=== PATIENT | male | born 1990 | race Hispanic/Latino ===

== ENCOUNTER 2025-06-21 20:58 | Emergency (ER) | payer OTHER, SELFPAY ==
[2025-06-21 20:59] VITALS: BP 111/73; PULSE 82; RESP 18; TEMP 36.4; O2SAT 98; BMI 20.3
--- NOTE | 2025-06-21 22:03 | EDS_ITS ---
HPI History of Present Illness Chief Complaint: Eye Problem Informant: patient Narrative Narrative: Patient is a 34-year-old male with no reported significant past medical history. He states he was at work yesterday when he believes he had a piece of metal in his right eye. He states he does not wear contact lenses. He reports that he did not think much of this but as time passed he developed increased redness swelling and pain from the eye. Secondary to his who presents for evaluation. PFSH PFSH Medical History no medical history no medical history Home Medications ?Medication ?Instructions ?Recorded ?Last Taken ?Type ciprofloxacin HCl 0.3 % eye drops 2 drp RIGHT EYE 4X/D AY 7 days #10 06/21/25 Unknown Rx mL oxycodone-acetaminophen 5 mg-325 1 tab PO Q6H PRN pain 3 days #12 06/21/25 Unknown Rx mg tablet (Percocet) tabs Allergy/AdvReac Type Severity Reaction Status Date / Time No Known Allergies Allergy Verified 06/21/25 20:59 Family History no significant family his Surgical History no surgical history Social History Smoking Status: Current every day smoker tobacco type: cigarettes ROS ROS ED Constitutional Constitutional ED: Denies chills or fever(s) Eyes Eyes: Reports blurry vision and other Details: Positive right eye pain and redness and increased tearing. There is photophobia present as well ENT ENT ED: Denies sore throat Cardiovascular Cardiovascular: Denies chest pain Respiratory/Chest Respiratory/Chest: Denies cough or dyspnea Gastrointestinal Gastrointestinal: Denies abdominal pain, diarrhea, nausea or vomiting Musculoskeletal Musculoskeletal: Denies neck pain Integumentary Denies rash Neurologic Neurologic: Denies headache(s) Hematologic/Lymphatic Hematologic/Lymphatic: Denies easy bleeding or easy bruising EXAM Physical Exam Const Vital Signs: 06/21/25 20:59 Temperature 97.5 F L Temperature Source Temporal Pulse Rate 82 Respiratory Rate 18 Blood Pressure 111/73 Blood Pressure Mean 85 Pulse Ox 98 Oxygen Delivery Method Room Air Positive well nourished and well developed General Appearance ED: well developed HEENT HEENT Narrative: Normocephalic atraumatic Eyes PERRL and EOMs intact bilaterally Eyes Narrative: There is increased scleral injection to the right eye with increased tearing. Over top of the iris near the 6 to 7 o'clock position is a punctate foreign body consistent with patient's history. The upper lid was everted there is no for eign body within the upper region of the eye. Negative Sidel sign No hyphema Neck supple Resp normal respiratory effort, no retractions, no use of accessory muscles and clear to auscultation bilaterally Cardio regular rate and regular rhythm Extremity normal to inspection Neuro oriented x3, CN's II-XII intact bilaterally, moves all extremities and no sensory deficits noted Sensorium / Orientation: alert Motor Exam: strength 5/5 throughout Psych mental status grossly normal Skin no rashes or lesions noted and no wounds MDM MDM MDM Narrative Medical decision making narrative: Patient arrived to the ER reporting potential retained foreign body in the right eye. His physical exam does show retained foreign body over top of the iris near the 6 to 7 o'clock position. There is no associated globe rupture with this. The patient does not have a hyphema. There is no subconjunctival hemorrhage. Therefore at this time there is no need for emergent ophthalmology consultation. The patient did achieve complete pain relief with tetracaine. A katya was then used to remove the foreign object. After doing so there did appear to still be a small rust ring present. At this time the patient will be started on ciprofloxacin ophthalmic drops to prevent secondary infection. He will be instructed to follow-up with ophthalmology for repeat evaluation regarding his corneal abrasion with foreign object and rust ring. However at this time as the foreign object appears to have been removed. There is no sign of globe rupture. There is no need for emergent evaluation by ophthalmology and he can be discharged home with symptomatic medications. History & Record Review Discussion w/independent historian: Patient Discharge Plan Triage Chief Complaint: Eye Problem ED Provider: Brad Sweeney Dx/Rx/DC Orders Clinical Impression: Acute foreign body of right cornea, Corneal abrasion, right Instructions: ED Corneal Abrasion, Foreign Body, Cornea Prescriptions: New oxycodone-acetaminophen [Percocet] 5-325 mg tablet 1 tab PO Q6H PRN (Reason: pain) 3 Days Qty: 12 0RF ciprofloxacin HCl 0.3 % drops 2 drp RIGHT EYE 4X/DAY 7 Days Qty: 10 0RF Rx Instructions: administer while awake Primary Care Provider: Care Physician,No Primary Referrals: Ruslan Wade MD [Med Staff - Active Staff, Opthamology] Referral Note: Corneal foreign body and corneal abrasion Care Physician,No Primary [Primary Care Provider, Medical] Activity Restrictions/Additional Instructions: Please use the antibiotic eyedrops as directed to prevent a secondary infection from the corneal abrasion. Follow-up with ophthalmology to ensure there is no further retained foreign object. Return to the ER should you have any further concerns or worsening of symptoms. It would typically take 5 days for symptoms to resolve Print Language: Hebrew Disposition Disposition: Home, Self Care Discharge Date/Time: 06/21/25 23:31
[2025-06-21] MEDS: Tetracaine 0.5% Ophthalmic Bottle 1 DRP RIGHT EYE (22:11)
[2025-06-21 23:00] VITALS: BP 141/94; PULSE 71; PULSE 72; RESP 18; TEMP 36.6; O2SAT 98; O2SAT 99
--- NOTE | 2025-06-21 23:25 | ED.RN ---
This RN educated the patient on the process of Workman's compensation and the patient filled out the form. However, the patient ultimately ended up refusing the paperwork and the patient is refusing to wait for [facility]. The patient was educated on the benefits of Workman's comp. The patient verbalized understanding of what he was refusing. The patient ambulated out of the department. [facility] notified.
== END 2025-06-21 23:31 | disposition home or self-care (01) ==
PROVIDERS: Emergency Provider Emergency Medicine; Visit Provider Emergency Medicine
DX: T15.01XA Foreign body in cornea, right eye, initial encounter (principal); F17.210 Nicotine dependence, cigarettes, uncomplicated; X58.XXXA Exposure to other specified factors, initial encounter
CPT/HCPCS: 99283

== ENCOUNTER 2025-07-11 19:10 | Emergency (ER) | payer SELFPAY ==
[2025-07-11 19:10] VITALS: BP 122/77; PULSE 88; RESP 15; TEMP 36.3; O2SAT 97; BMI 20.5
--- OUTSIDE RECORDS SUMMARY | 2025-07-11 20:17 | XMS RPT_ITS | CCD ---
Author Organization [facility] Care Team Providers Care Ic Designer [employer] Name Role Phone Brad Sweeney Attending Unavailable Care Physician, No Primary Primary Care Unava ilable Dr. Brad Sweeney DO Attending Physician Dr. Brad Sweeney DO Emergency Department Physic miki Care Physician, No Primary Primary Care Physicia n Unavailable Medications Current Medications Medication Drug Class(es) Dates Sig (Normalized) Sig (Original) acetaminophen 325 mg / oxyCODONE hydrochloride 5 mg oral tablet (1 source) Opioid Agonist Start: 06-21-2025 take 1 tablet by mouth every six hours as needed for pain ciprofloxacin 3 mg/ml ophthalmic solution (1 source) Quinolone Antimicrobial Start: 06-21-2025 Problems Problem Classification Problem Date Documented Da te Episodic/Chronic Other injuries and conditions due to external causes (1 source) Foreign body in cornea, right eye, initial encounter; Translations: [Foreign body in cornea, right eye, initial encounter] Onset: 06-25-2025 Episodic Other injuries and conditions due to external causes (1 source) Foreign body in right cornea; Translations: [Foreign body in cornea, right eye, initial encounter] 06-21-2025 Episodic Superficial injury; contusion (1 source) Abrasion of cornea of right eye; Translations: [Injury of conjunctiva and corneal abrasion without foreign body, right eye, initial encounter] 06-21-2025 Episodic Unclassified (1 source) Corneal foreign body and corneal abrasion Results Test Name Value Interpretation Reference Range Facil ity Emergency Department Summary on 06-21-2025 Emergency Department Summary [facility] Medical Records Department [address] [place] [address] Emergency Department Summary 06/21/25 MR#: [id number] Acct: [id number] Name: FILOMENA BARTON Rep #: [id number] : 1990 34 From: Brad Sweeney DO PCP: Care Physician,No Primary Status:DEP ER Location: ED HPI History of Present Illness Chief Complaint: Eye Problem Informant: patient Narrative Narrative: Patient is a 34-year-old male with no reported significant past medical history. He states he was at work yesterday when he believes he had a piece of metal in his right eye. He states he does not wear contact lenses. He reports that he did not think much of this but as time passed he developed increased redness swelling and pain from the eye. Secondary to his who presents for evaluation. PFSH PFSH Medical History no medical history no medical history Home Medications ???Medication ???Instructions ???Recorded ???Last Taken ???Type ciprofloxacin HCl 0.3 % eye drops 2 drp RIGHT EYE 4X/DAY 7 days #10 06/21/25 Unknown Rx mL oxycodone-acetaminop hen 5 mg-325 1 tab PO Q6H PRN pain 3 days #12 0 06/21/25 Unknown Rx mg tablet (Percocet) tabs Allergy/AdvReac Type Severity Reaction Status Date / Time No Known Allergies Allergy Verified 06/21/25 20:59 Family History no significant family his Surgical History no surgical history Social History Smoking Status: Current every day smoker tobacco type: cigarettes ROS ROS ED Constitutional Constitutional ED: Denies chills or fever(s) Eyes Eyes: Reports blurry vision and other Details: Positive right eye pain and redness and increased tearing. There is photophobia present as well ENT ENT ED: Denies sore throat Cardiovascular Cardiovascular: Denies chest pain Respiratory/Chest Respiratory/Chest: Denies cough or dyspnea Gastrointestinal Gastrointestinal: Denies abdominal pain, diarrhea, nausea or vomiting Musculoskeletal Musculoskeletal: Denies neck pain Integumentary Denies rash Neurologic Neurologic: Denies headache(s) Hematologic/Lymphati c Hematologic/Lymphati c: Denies easy bleeding or easy bruising EXAM Physical Exam Const Vital Signs: 06/21/25 20:59 Temperature 97.5 F L Temperature Source Temporal Pulse Rate 82 Respiratory Rate 18 Blood Pressure 111/73 Blood Pressure Mean 85 Pulse Ox 98 Oxygen Delivery Method Room Air Positive well nourished and well developed General Appearance ED: well developed HEENT HEENT Narrative: Normocephalic atraumatic Eyes PERRL and EOMs intact bilaterally Eyes Narrative: There is increased scleral injection to the right eye with increased tearing. Over top of the iris near the 6 to 7 o'clock position is a punctate foreign body consistent with patient's history. The upper lid was everted there is no foreign body within the upper region of the eye. Negative Sidel sign No hyphema Neck supple Resp normal respiratory effort, no retractions, no use of accessory muscles and clear to auscultation bilaterally Cardio regular rate and regular rhythm Extremity normal to inspection Neuro oriented x3, CN's II-XII intact bilaterally, moves all extremities and no sensory deficits noted Sensorium / Orientation: alert Motor Exam: strength 5/5 throughout Psych mental status grossly normal Skin no rashes or lesions noted and no wounds MDM MDM MDM Narrative Medical decision making narrative: Patient arrived to the ER reporting potential retained foreign body in the right eye. His physical exam does show retained foreign body over top of the iris near the 6 to 7 o'clock position. There is no associated globe rupture with this. The patient does not have a hyphema. There is no subconjunctival hemorrhage. Therefore at this time there is no need for emergent ophthalmology consultation. The patient did achieve complete pain relief with tetracaine. A katya was then used to remove the foreign object. After doing so there did appear to still be a small rust ring present. At this time the patient will be started on ciprofloxacin ophthalmic drops to prevent secondary infection. He will be instructed to follow-up with ophthalmology for repeat evaluation regarding his corneal abrasion with foreign object and rust ring. However at this time as the foreign object appears to have been removed. There is no sign of globe rupture. There is no need for emergent evaluation by ophthalmology and he can be discharged home with symptomatic medications. History Record Review Discussion w/independent historian: Patient Discharge Plan Triage Chief Complaint: Eye Problem ED Provider: Brad Sweeney Dx/Rx/DC Orders Clinical Impression: Acute foreign body of right cornea, Corneal abrasion, right Instructions: ED (more content not included)... Normal [facility] Vital Signs Date Time Vital Sign Value Performing Clinician Elizabet benedict 06-21-2025 23:00-0400 Body temperature 98 [degF] Dr. Brad Sweeney DO Work Phone: [facility] 06-21-2025 23:00-0400 Diastolic blood pressure 94 mm[Hg] Dr. Brad Sweeney DO Work Phone: [facility] 06-21-2025 23:00-0400 Heart rate 71 /min Dr. Brad Sweeney DO Work Phone: [facility] 06-21-2025 23:00-0400 Respiratory rate 18 /min Dr. Brad Sweeney DO Work Phone: [facility] 06-21-2025 23:00-0400 SaO2% (BldA) [Mass fraction] 98 % Dr. Brad Sweeney DO Work Phone: [facility] 06-21-2025 23:00-0400 Systolic blood pressure 141 mm[Hg] Dr. Brad Sweeney DO Work Phone: [facility] 06-21-2025 20:59-0400 Body height 180.[address] Brad Sweeney DO Work Phone: [facility] 06-21-2025 20:59-0400 Body mass index (BMI) [Ratio] 20.3 kg/m2 Dr. Brad Sweeney DO Work Phone: [facility] 06-21-2025 20:59-0400 Body weight 66.[address] Brad Sweeney DO Work Phone: [facility] Encounters Encounter Date Encounter Type Care Provider Facility Start: 06-21-2025 End: 06-21-2025 Emergency department patient visit Brad Sweeney Facility:[facility] Plan of Treatment Date Care Activity Detail Author Start: 06-21-2025 [facility] Patient Education ED Corneal Abr asion Foreign Body, Cornea [facility] Work Phone: Payers Date Payer Category Payer Self-pay 2025 Unknown [id number] Unknown [id number] Social History Date Type Detail Facility Start: 06-21-2025 Tobacco smoking stat us [facility] Smokes tobacco daily (finding) [facility] Sex Male [facility] Start: 1990 Sex Assigned At Male [facility] Discharge summary 06-21-2025 Note Date & Type Note Facility 06-21-2025 Discharge summary [facility] Discharge summary 06-21-2025 Note Date & Type Note Facility 06-21-2025 Discharge summary Note Date/Time June 21, 2025 11:31pm [facility] Medical Records Department [address] [place] [address] Emergency Department Summary 06/21/25 MR#: [id number] Acct: [id number] Name: FILOMENA BARTON Rep #:[id number] : 1990 34 From: Brad Sweeney DO PCP: Care Physician,No Primary Status :DEP ER Location: ED HPI History of Present Illness Chief Complaint: Eye Problem Informant: patient Narrative Narrative: Patient is a 34-year-old male with no reported significant past medical history. He states he was at work yesterday when he believes he had a piece of metal in his right eye. He states he does not wear contact lenses. He reports that he did not think much of this but as time passed he developed increased redness swelling and pain from the eye. Secondary to his who presents for evaluation. [facility] Medical History no medical history no medical history Home Medications ?Medication ?Instructions ?Recorded ?Last Taken ?Type ciprofloxacin HCl 0.3 % eye drops 2 drp RIGHT EYE 4X/D AY 7 days #10 06/21/25 Unknown Rx mL oxycodone-acetaminophen 5 mg-325 1 tab PO Q6H PRN pain 3 days #12 06/21/25 Unknown Rx mg tablet (Percocet) tabs Allergy/AdvReac Type Severity Reaction Status Date / Time No Known Allergies Allergy Verified 06/21/25 20:59 Family History no significant family his Surgical History no surgical history Social History Smoking Status: Current every day smoker tobacco type: cigarettes ROS ROS ED Constitutional Constitutional ED: Denies chills or fever(s) Eyes Eyes: Reports blurry vision and other Details: Positive right eye pain and redness and increased tearing. There is photophobia present as well ENT ENT ED: Denies sore throat Cardiovascular Cardiovascular: Denies chest pain Respiratory/Chest Respiratory/Chest: Denies cough or dyspnea Gastrointestinal Gastrointestinal: Denies abdominal pain, diarrhea, nausea or vomiting Musculoskeletal Musculoskeletal: Denies neck pain Integumentary Denies rash Neurologic Neurologic: Denies headache(s) Hematologic/Lymphatic Hematologic/Lymphatic: Denies easy bleeding or easy bruising EXAM Physical Exam Const Vital Signs: 06/21/25 20:59 Temperature 97.5 F L Temperature Source Temporal Pulse Rate 82 Respiratory Rate 18 Blood Pressure 111/73 Blood Pressure Mean 85 Pulse Ox 98 Oxygen Delivery Method Room Air Positive well nourished and well developed General Appearance ED: well developed HEENT HEENT Narrative: Normocephalic atraumatic Eyes PERRL and EOMs intact bilaterally Eyes Narrative: There is increased scleral injection to the right eye with increased tearing. Over top of the iris near the 6 to 7 o'clock position is a punctate foreign bodyconsistent with patient's history. The upper lid was everted there is no foreign body within the upper region of the eye. Negative Sidel sign No hyphema Neck supple Resp normal respiratory effort, no retractions, no use of accessory muscles and clearto auscultation bilaterally Cardio regular rate and regular rhythm Extremity normal to inspection Neuro oriented x3, CN's II-XII intact bilaterally, moves all extremities and no sensory deficits noted Sensorium / Orientation: alert Motor Exam: strength 5/5 throughout Psych mental status grossly normal Skin no rashes or lesions noted and no wounds MDM MDM MDM Narrative Medical decision making narrative: Patient arrived to the ER reporting potential retained foreign body in the righteye. His physical exam does show retained foreign body over top of the iris near the 6 to 7 o'clock position. There is no associated globe rupture with this. The patient does not have a hyphema. There is no subconjunctival hemorrhage. Therefore at this time there is no need for emergent ophthalmology consultation. The patient did achieve complete pain relief with tetracaine. A katya was then used to remove the foreign object. After doing so there did appear to still be a small rust ring present. At this time the patient will be started on ciprofloxacin ophthalmic drops to prevent secondary infection. He will be instructed to follow-up with ophthalmology for repeat evaluation regarding his corneal abrasion with foreign object and rust ring. However at this time as the foreign object appears to have been removed. There is no sign of globe rupture. There is no need for emergent evaluation by ophthalmology andhe can be discharged home with symptomatic medications. History & Record Review Discussion w/independent historian: Patient Discharge Plan Triage Chief Complaint: Eye Problem ED Provider: Brad Sweeney Dx/Rx/DC Orders Clinical Impression: Acute foreign body of right cornea, Corneal abrasion, right Instructions: ED Corneal Abrasion, Foreign Body, Cornea Prescriptions: New oxycodone-acetaminophen [Percocet] 5-325 mg tablet 1 tab PO Q6H PRN (Reason: pain) 3 Days Qty: 12 0RF ciprofloxacin HCl 0.3 % drops 2 drp RIGHT EYE 4X/DAY 7 Days Qty: 10 0RF Rx Instructions: administer while awake Primary Care Provider: Care Physician,No Primary Referrals: Ruslan Wade MD [Med Staff - Active Staff, Opthamology] Referral Note: Corneal foreign body and corneal abrasion Care Physician,No Primary [Primary Care Provider, Medical] Activity Restrictions/Additional Instructions: Please use the antibiotic eyedrops as directed to prevent a secondary infection from the corneal abrasion. Follow-up with ophthalmology to ensure there is no further retained foreign object. Return to the ER should you have any further concerns or worsening of symptoms. It would typically take 5 days for symptoms to resolve Print Language: Slovenian Disposition Disposition: Home, Self Care Discharge Date/Time: 06/21/25 23:31 What to do if you have Problems For any increased pain, shortness of breath, bleeding, nausea or vomiting, chestpain, or any unexpected problems, contact your Primary Care Provider. Call [facility] ([phone]) or report to the closest Emergency Room. Call 911 if necessary. 06/22/25 0344 <Electronically signed by Brad Sweeney DO> Cosigner Signature (if applicable): CC: No Primary Care Physician ~ Signed [facility] Work Phone: Evaluation note Note Date & Type Note Facility Evaluation note No assessment information availa ble [facility] Work Phone: Hospital Discharge instructions Note Date & Type Note Facility Hospital Discharge instructions Additional Instructions Please use the antibiotic eyedrops as directed to prevent a secondary infection from the corneal abrasion. Follow-up with ophthalmology to ensure there is no further retained foreign object. Return to the ER should you have any further concerns or worsening of symptoms. It would typically take 5 days for symptoms to resolve [facility] Work Phone: Summary Purpose Family History No Family History Records Found Advance Directives Advance Directive Response Recorded Date/ Time Do you have a Healthcare Power of Lump Roller? No June 21, 2025 10:12pm Chief Complaint and Reason for Visit Chief Complaint Admit Date EYE PROBLEM June 21, 2025 8:58pm Additional Source Comments (unrecognized sect ion and content) No Status Records Found INFORMATION SOURCE (unrecogn ized section and content) DATE CREATED AUTHOR 06/29/2025 [facility] Care Teams (unrecognized sec tion and content) Team Status: Active Member Role/Relationship Status Dates No Primary Care Physician Primary care physician Activ e Team Status: Inactive Member Role/Relationship Status Dates Dr. Brad Sweeney , DO Attending physician Active Start: June 21, 2025 End: June 21, 2025 Dr. Brad Sweeney , DO Emergency Departme nt Physician Active Start: June 21, 2025 End: June 21, 2025 No Primary Care Physician Primary care physician Activ e Start: June 21, 2025 End: June 21, 2025 Goals (unrecognized section and content) Goals may be documented in a n alternate section FOR RECORDS PERTAINING TO PATIENTS WHO ARE OR HAVE BEEN ENROLLED IN A CHEMICAL DEPENDENCY/SUBSTANCEABUSE PROGRAM, SOME INFORMATION MAY BE OMITTED. This clinical summary was aggregated from multiple sources. Caution should be exercised in using it in the provision of clinical care. This summary normalizes information from multiple sources, and as a consequence, information in this document may materially change the coding, format and clinical context of patient data. In addition, data may be omitted in some cases. CLINICAL DECISIONS SHOULD BE BASED ON THE PRIMARY CLINICAL RECORDS. [facility]. provides no warranty or guarantee of the accuracy or completeness of information in this document.
[2025-07-11] MEDS: Tetracaine 0.5% Ophthalmic Bottle 1 DRP OPHTHALMIC (20:20)
--- NOTE | 2025-07-11 21:30 | EDS_ITS ---
HPI History of Present Illness Chief Complaint: Eye Problem Onset/Context/Timing Onset: Yesterday Context: Sudden Onset Timing: Continuous Worsened by: Closing his eye Relieved by: Nothing Associated Symptoms Associated Symptoms - Eyes: Foreign body sensation, Pain and Redness; Negative for Burning, Crusting, Drainage, Eyelid swelling, Itching, Matting or Photophobia History of injury: Foreign body Visual correction: None Narrative Narrative: Patient presents with left eye redness and irritation that began yesterday. Patient states that he felt like something flew into his eye. Patient states that he had a similar episode in his right eye in the past and had to have a foreign body removed with a drill. Patient states that his pain is worse whenever he closes his eye. Patient is nothing makes it better. Patient denies any change in his vision. Patient denies wearing glasses or contacts. PFSH PFS Medical History no medical history no medical history Home Medications ?Medication ?Instructions ?Recorded ?Last Taken ?Type NK 07/11/25 Unknown History Allergy/AdvReac Type Severity Reaction Status Date / Time No Known Allergies Allergy Verified 07/11/25 19:13 Surgical History no surgical history no surgical history Social History (Updated 07/11/25 @ 21:[address] Alessandro Kaur, DO) Smoking Status: Current every day smoker tobacco type: cigarettes substance use type: marijuana ROS ROS ED Constitutional Constitutional ED: Denies chills or fever(s) Eyes Eyes: Denies blurry vision or change in vision ENT ENT ED: Denies rhinorrhea or sore throat Cardiovascular Cardiovascular: Denies chest pain or palpitations Respiratory/Chest Respiratory/Chest: Denies cough or dyspnea Gastrointestinal Gastrointestinal: Denies nausea or vomiting Genitourinary Genitourinary ED: Denies dysuria or hematuria Musculoskeletal Musculoskeletal: Denies back pain or neck pain Integumentary Denies abscess or rash Neurologic Neurologic: Denies headache(s) or weakness Allergic/Immunologic Allergic/Immunologic ED: Denies mouth swelling or urticaria EXAM Physical Exam Const Vital Signs: 07/11/25 19:10 Temperature 97.4 F L Temperature Source Temporal Pulse Rate 88 Respiratory Rate 15 Blood Pressure 122/77 H Blood Pressure Mean 92 Pulse Ox 97 Positive well nourished and well developed General Appearance ED: well developed and NAD HEENT atraumatic Eyes Eyes Narrative: Pupils are equal, round, reactive to light bilaterally. Extraocular muscles are intact. Conjunctiva was injected on the left. There is no discharge or drainage noted. Anterior chamber was clear. There is no hyphema. There is no cell or flare. Patient was unable to tolerate funduscopic exam. Under slit-lamp examination, there is a small punctate abrasion over the superior medial cornea at approximately the 10 o'clock position. This was not metallic. There is no rust ring noted. Neuro oriented x3, CN's II-XII intact bilaterally, moves all extremities and no sensory deficits noted Sensorium / Orientation: alert Motor Exam: strength 5/5 throughout MDM MDM MDM Narrative Medical decision making narrative: Visual acuity was 20/20 in the right eye and 20/30 in the left eye. Patient was advised of his findings. The left eye was irrigated. Patient was given erythromycin ophthalmic ointment. Patient was instructed to follow-up with his primary care physician in 2 to 3 days. Patient was instructed to return if worse in any way. Patient understood and was agreeable with the plan. All questions were answered. Discharge Plan Triage Chief Complaint: Eye Problem ED Provider: Alessandro Kaur Dx/Rx/DC Orders Clinical Impression: Corneal abrasion, left, Elevated blood pressure reading Instructions: ED Corneal Abrasion Prescriptions: No Action NK Primary Care Provider: Care Physician,No Primary Referrals: Care Physician,No Primary [Primary Care Provider, Medical] Caron Marquez CONTA[facility]-C [facility] - As soon as possible Print Language: Tuvaluan Disposition Disposition: Home, Self Care
[2025-07-11] MEDS: Erythromycin Ophthalmic (NSY) 1 GM OPTH.TUBE 1 APPLIC LEFT EYE (22:40)
[2025-07-11 22:41] VITALS: BP 119/74; PULSE 69; RESP 18; TEMP 36.6; O2SAT 99
== END 2025-07-11 22:41 | disposition home or self-care (01) ==
PROVIDERS: Emergency Provider Emergency Medicine; Visit Provider Emergency Medicine
DX: S05.02XA Injury of conjunctiva and corneal abrasion without foreign body, left eye, initial encounter (principal); R03.0 Elevated blood-pressure reading, without diagnosis of hypertension; F17.210 Nicotine dependence, cigarettes, uncomplicated; X58.XXXA Exposure to other specified factors, initial encounter
CPT/HCPCS: 99284